=== PATIENT | male | born 1980 | race Caucasian/White ===

== ENCOUNTER 2017-02-23 20:52 | Inpatient (IN) | payer BC ==
[~2017-02-23] VITALS: Ht 177.8 cm; Wt 88.0 kg
--- NOTE | 2017-02-23 21:11 | NUR ---
PT TO ER VIA [facility] W/ C/O ABD PAIN GENERALIZED X 1 WEEK PT WENT TO [facility] ON MONDAY NO DX PT SAW PMD PT IN PAIN AGAIN PT TO [facility] ON MONITOR MD AWARE AWAIT ORDERS AND DISPO
[2017-02-23 22:24] LABS: BASOPHIL % 0.2 % (0-2); PLATELET COUNT 236 x10^3mcL (130-400); RED CELL DISTRIBUTION WIDTH 12.8 % (11.5-14.5)
--- NOTE | 2017-02-23 22:28 | NUR ---
ORDERS PER MD VSS CONT TO MONITOR
--- NOTE | 2017-02-23 22:43 | NUR ---
PT MEDICATED PER MD ORDER IVF RUNNING W/O COMPLICATIONS
[2017-02-23 22:44] LABS: CARBON DIOXIDE 23.9 mmol/L (21-32); CHLORIDE SERUM 104 mmol/L (98-107); CREATININE SERUM 0.8 mg/dL (0.7-1.3); GFR1 > 60 mL/min; GLUCOSE SERUM 105 mg/dL (74-106); POTASSIUM SERUM 3.5 mmol/L (3.5-5.1); SODIUM SERUM 140 mmol/L (136-145)
[2017-02-23 22:50] LABS: ALBUMIN 4.3 g/dL (3.4-5.0); ALKALINE PHOSPHATASE 54 U/L (46-116); ALT/SGPT 23 U/L (16-63); AST/SGOT 18 U/L (15-37); BILIRUBIN TOTAL 1.1 mg/dL (0.20-1.00); CHOLESTEROL 185 mg/dL (<200); LIPASE 151 IU/L (73-393); TOTAL PROTEIN, SERUM 7.7 g/dL (6.4-8.2); TRIGLYCERIDES 154 mg/dL (<150)
[2017-02-23 22:51] LABS: CHOLESTEROL/HDL RATIO 5.8; HDL CHOLESTEROL 32 mg/dL (40-60)
[2017-02-23 22:52] LABS: T3 TOTAL 1.41 ng/mL
[2017-02-23 22:53] LABS: FREE T4 1.39 ng/dL (0.76-1.46); FREE THYROXINE INDEX 2.8 ug/dL (1.4-4.5)
[2017-02-23 23:51] LABS: microscopic required? NO
--- NOTE | 2017-02-23 23:51 | NUR ---
PT SLEEPING AWAIT ORDERS AND DISPO VSS
[2017-02-24 00:07] LABS: UA SPECIFIC GRAVITY <=1.005 (1.005-1.035); urine erythrocyte NEGATIVE (NEGATIVE)
--- NOTE | 2017-02-24 00:36 | NUR ---
AGENCY DOCUMENTATION DONE BY Staff Name/Title - :KEVAN SWEET ANT [employer] User ID - : Agency Name - :[facility] Time Documented - From - : To - :
--- NOTE | 2017-02-24 00:49 | NUR ---
PT FOR ADMISSION ADMISSION ORDERS COMPLETE AWAIT PLACEMENT
--- NOTE | 2017-02-24 03:15 | NUR ---
REPORT GIVEN TO FLOOR JIM GUILLEN ALL QUESTIONS ASKED AND ANSWERED PT TX TO FLOOR IN STABLE CONDITION W/ ALL PERSONAL BELONGINGS
[2017-02-24 03:25] VITALS: BP 150/85
[2017-02-24 03:34] VITALS: BP 150/85
[2017-02-24 04:02] LABS: MAGNESIUM 2.2 mg/dL (1.8-2.4); PHOSPHOROUS 2.7 mg/dL (2.5-4.9)
--- NOTE | 2017-02-24 04:04 | NUR ---
Admitted this 36y/o male from ED via [facility]. Alert and oriented. Ambulatory. No resp.distress noted on room air. c/o diffuse abd'l. pain, level 6/10. Dilaudid 2mg po given as ordered. Denies n/v. Admission assessment done. will cont.to monitor. Call light within reach. tele#[id number] normal sinus rhythm.
[2017-02-24 04:34] LABS: AMPHETAMINE QUAL UR NONE DETECTED (NEG <=1000)
--- NOTE | 2017-02-24 07:44 | NUR ---
PT RECEIVED DURING CHANGE OF SHIFT, A/OX4, RIGHT EAR [place], TELE 46, NSR, DENIES CHEST PAIN, PULSES PRESENT, NO EDEMA NOTED, LUNGS CTA ON RA, DENIES SOB, BREATHING EVEN AND UNLABORED, BOWEL SOUNDS ACTIVE, DENIES N/V, ABLE TO VOID, AMBULATORY, SKIN WARM/DRY/INTACT, C/O ABD PAIN 2/10, STATES PAIN TOLERABLE, IV TO RAC INFUSING NS AT 100ML/HR, CALM AND COOPERATIVE, CALL LIGHT WITHIN REACH, WILL CONTINUE TO MONITOR.
--- NOTE | 2017-02-24 08:01 | NUR ---
DR. ALTMAN AND RESIDENTS MAKING ROUNDS, PLAN OF CARE DISCUSSED.
--- NOTE | 2017-02-24 08:40 | NUR ---
PT DENIES SOB, STATES PAIN IS TOLERABLE, REFUSING PAIN MEDICATION AT THIS TIME, REFUSED COLACE, CALL LIGHT WITHIN REACH, WILL CONTINUE TO MONITOR.
[2017-02-24 09:22] VITALS: BP 123/81
--- NOTE | 2017-02-24 09:22 | NUR ---
PT DENIES SOB, STATES PAIN TOLERABLE, CONSENT FOR REQUEST OF INFORMATION OBTAINED, CALL LIGHT WITHIN REACH, WILL CONTINUE TO MONITOR.
--- NOTE | 2017-02-24 10:16 | NUR ---
PT DENIES SOB, STATES PAIN TOLERABLE, D5NS STARTED, PT AWARE THAT HAT IS PLACED ON TOILET TO COLLECT SPECIMENT, CALL LIGHT WITHIN REACH, WILL CONTINUE TO MONITOR.
--- NOTE | 2017-02-24 11:10 | NUR ---
PT ASLEEP, NO INDICATION OF PAIN, BREATHING EVEN AND UNLABORED, CALL LIGHT WITHIN REACH, WILL CONTINUE TO MONITOR.
--- NOTE | 2017-02-24 12:05 | NUR ---
PT DENIES SOB, STATES PAIN TOLERABLE, C/O NAUSEA, MEDICATED PER EMAR, CALL LIGHT WITHIN REACH, WILL CONTINUE TO MONITOR.
--- NOTE | 2017-02-24 13:16 | NUR ---
PT C/O LIGHT HEADED, DIZZINESS, AND NAUSEA. DR. MARTINEZ NOTIFIED OF HR 53 REPORTED BY TELE MONITOR STATION, BP STABLE, BS 101, WILL AWAIT FURTHER ORDERS.
[2017-02-24 13:39] VITALS: BP 129/80
--- NOTE | 2017-02-24 13:47 | NUR ---
REGLAN 5MG GIVEN PER 'S ORDERS, WILL CONTINUE TO MONITOR.
--- NOTE | 2017-02-24 14:04 | NUR ---
PT DENIES SOB, DENIES PAIN, DENIES N/V, STATES "I FEEL MUCH BETTER.", CALL LIGHT WITHIN REACH, WILL CONTINUE TO MONITOR.
--- NOTE | 2017-02-24 15:10 | NUR ---
PT ASLEEP, NO INDICATION OF PAIN, BREATHING EVEN AND UNLABORED, CALL LIGHT WITHIN REACH, WILL CONTINUE TO MONITOR.
--- NOTE | 2017-02-24 16:12 | NUR ---
PT DENIES SOB, DENIES PAIN, DENIES N/V, TEARFUL DURING PERSONAL CALL WITH SPOUSE, CALL LIGHT WITHIN REACH, WILL CONTINUE TO MONITOR.
[2017-02-24 17:01] VITALS: BP 114/74
--- NOTE | 2017-02-24 17:18 | NUR ---
PT DENIES SOB, STATES ABD PAIN 2/10 TOLERABLE, REFUSING MEDICATION AT THIS TIME, CALL LIGHT WITHIN REACH, WILL CONTINUE TO MONITOR.
--- NOTE | 2017-02-24 18:16 | NUR ---
PT DENIES SOB, STATES ABD PAIN TOLERABLE, REFUSING PAIN MEDICATION AT THIS TIME, CALL LIGHT WITHIN REACH, WILL ENDORSE TO NEXT SHIFT.
--- NOTE | 2017-02-24 18:30 | NUR ---
PER DR. DE SANTIAGO SUPREP AND SENFRANSISCA TO BE GIVEN NOW WITH CEPHULAC, ORDERS CHANGED PER DR. DE SANTIAGO'S ORDERS.
--- NOTE | 2017-02-24 19:20 | NUR ---
AAOX4. NO RESP DISTRESS ON ROOM AIR, STS ABDOMINAL PAIN IS TOLERABLE. BOWEL PREP STARTED AND WILL CONTINUE PER DOCTOR'S ORDER FOR EGD AND COLONOSCOPE TOMORROW, BRP, KEPT NPO, IVF D5NS AT 80ML/HR INFUSING WELL TO RAC IV SITE, SCD TO BLE INPLACED, PLAN OF CARE DISCUSSED, CALL LIGHT PLACED WITHIN EASY REACH, SIDERAILS UP X2.
--- NOTE | 2017-02-24 20:20 | NUR ---
SEEN WALKING BACK FROM BATHROOM STS FEELING DIZZY, ASSISTED BACK TO BED, PATIENT VOMITED WITH DARK GREENISH EMESIS NOTED, STS ABDOMINAL PAIN IS 5/10 ON PAIN SCALE, WILL BE MEDICATED PER DOCTOR'S ORDER, BSC PROVIDED.
--- NOTE | 2017-02-24 20:34 | NUR ---
TORADOL IV FOR PAIN AND ZOFRAN IV FOR NAUSEA GIVEN PER DOCTOR'S ORDER. PATIENT STS " I DON'T KNOW IF I'M GONNA BE ABLE TO HANDLE THIS BOWEL PREP THINGS, I CAN BE RUDE IF IT GO BELOW MY CERTAIN POINT" REINFORED PATIENT TO CALL FOR HELP NEEDED. WILL CONTINUE TO MONITOR.
[2017-02-24 20:38] VITALS: BP 128/90
--- NOTE | 2017-02-24 21:30 | NUR ---
PATIENT CALLED STS IV PEEPING, SEEN PATIENT LAYING IN BED STS FEELING DISORIENTED AFTER PAIN MEDICINE AND ZOFRAN GIVEN, STS HE CAN'S HANDLE THE BOWLE PREP ANYMORE AND CRYING, NOTED PATIENT FINISHED HALF OF 2ND PART OF BOWEL PREP MEDICINE ALREADY. PATIENT HAD WATERY STOOL WITH LIGHT GREENISH COLORED NOTED ON BSC, EMPTIED BSC. PATIENT STS HE WANTS TO SLEEP BUT WORRY THAT HE MIGHT HAVE ACCIDENT FROM LAXATIVE GIVEN. EXPLAINED TO PATIENT THAT IT IS OK FOR HIM TO GET SOME SLEEP AND CAN FINISH HIS BOWEL PREP MEDS LATER, PATIENT THEN STARTS TO CRY. LEAD BURNER SUPERVISOR MADE AWARE.
--- NOTE | 2017-02-24 22:30 | NUR ---
DOCTOR CORINNA WENT IN TO ASSESS PATIENT, HEARD PATIENT YELLING WITH MANY "F" WORDS. FOOD AND BEVERAGE CONTROLLER AND SECURITY WENT IN TO TALK TO PATIENT BUT PATIENT WANT TO SPEAK TO BUSINESS CONTINUITY CONSULTANT.
--- NOTE | 2017-02-24 22:54 | NUR ---
SOCIAL WORK ADMINISTRATOR AT BEDSIDE AT THIS TIME.
--- NOTE | 2017-02-24 23:30 | NUR ---
DOCTOR PINEDA WENT IN TO TALK TO PATIENT. PER DOCTOR PINEDA, PATIENT IS AGREED WITH PLAN OF CARE.
--- NOTE | 2017-02-25 00:01 | NUR ---
AMBIEN 5MG AND ATIVAN 1MG IVP GIVEN PER DOCTOR EDWIN'S ORDER. WILL CONTINUE TO MONITOR.
--- NOTE | 2017-02-25 02:00 | NUR ---
RESTING WITH EYES CLOSE. KEPT NPO.
[2017-02-25 05:51] VITALS: BP 138/83
--- NOTE | 2017-02-25 06:00 | NUR ---
HAD WATERY BM X6 THROUGHOUT SHIFT WITH LIGHT BROWN STOOL COLORED. VSS. KEPT NPO. IVF NS INFUSING WELL.
[2017-02-25 06:05] LABS: BASOPHIL % 0.3 % (0-2); PLATELET COUNT 226 x10^3mcL (130-400); RED CELL DISTRIBUTION WIDTH 12.9 % (11.5-14.5)
[2017-02-25 06:24] LABS: CALCIUM 8.6 mg/dL (8.5-10.1); CARBON DIOXIDE 26.8 mmol/L (21-32); CHLORIDE SERUM 110 mmol/L (98-107); CREATININE SERUM 0.8 mg/dL (0.7-1.3); GFR1 > 60 mL/min; GLUCOSE SERUM 95 mg/dL (74-106); POTASSIUM SERUM 3.7 mmol/L (3.5-5.1); SODIUM SERUM 146 mmol/L (136-145)
--- NOTE | 2017-02-25 07:36 | NUR ---
REPORT GIVEN TO [place] IN GI LAB.
--- NOTE | 2017-02-25 07:48 | NUR ---
PT RECEIVED DURING CHANGE OF SHIFT, A/OX4, [place] RT EAR, TELE 46, NSR, PULSES PRESENT, NO EDEMA, LUNGS CTA ON RA, DENIES SOB, BREATHING EVEN AND UNLABORED, BOWEL SOUNDS ACTIVE, LBM THIS MORNING, PREVIOUS SHIFT REPORTS CLEAR BM, PT REFUSED LAST DOSE OF SENOKOT AND CEPHULAC, ABLE TO VOID, AMBULATORY, SKIN WARM/DRY/INTACT, C/O ABD PAIN 2/10 (CRAMPING), C/O NAUSEA, REFUSED MEDICATION AT THIS TIME, IV TO RAC INFUSING NS AT 80ML/HR, CALL LIGHT WITHIN REACH, CURRENTLY CALM AND COOPERATIVE, WILL CONTINUE TO MONITOR.
--- NOTE | 2017-02-25 08:27 | NUR ---
PT DENIES SOB, STATES PAIN TOLERABLE, REFUSED COLACE, CALL LIGHT WITHIN REACH, WILL CONTINUE TO MONITOR.
[2017-02-25 08:42] VITALS: BP 136/83
--- NOTE | 2017-02-25 08:59 | NUR ---
PT BEING ESCORTED DOWN TO GI LAB, WILL AWAIT PT'S RETURN.
--- NOTE | 2017-02-25 10:13 | NUR ---
REPORT RECEIVED FROM [place] IN GI LAB, WILL AWAIT PT'S RETURN.
--- NOTE | 2017-02-25 10:27 | NUR ---
PT ARRIVED FROM GI LAB, DROWSY BUT AROUSABLE, RESPONDS TO VERBAL COMMAND, VSS, STATES HE IS "PASSING GAS", CALL LIGHT WITHIN REACH, WILL CONTINUE TO MONITOR.
[2017-02-25 10:40] VITALS: BP 107/67
--- NOTE | 2017-02-25 11:20 | NUR ---
PT A/OX4, DENIES SOB, DENIES PAIN, STATES "I'M READY TO ANSWER QUESTIONS NOW, I FEEL A BIT BETTER", CALL LIGHT WITHIN REACH, WILL CONTINUE TO MONITOR.
--- NOTE | 2017-02-25 12:25 | NUR ---
PT DENIES SOB, DENIES PAIN, CALL LIGHT WITHIN REACH, WILL CONTINUE TO MONITOR.
[2017-02-25 12:57] VITALS: BP 121/85
--- NOTE | 2017-02-25 13:02 | NUR ---
DR. MARTINEZ AT BEDSIDE DISCUSSING RESULTS OF EGD/COLONOSCOPY, SUPPLEMENTATION WITH PSYLLIUM HUSK, AND DIET RECOMMENDATIONS RELEVANT TO RESULTS.
--- NOTE | 2017-02-25 14:00 | NUR ---
PT ASLEEP, NO INDICATION OF PAIN, BREATHING EVEN AND UNLABORED, CALL LIGHT WITHIN REACH, WILL CONTINUE TO MONITOR.
--- NOTE | 2017-02-25 15:02 | NUR ---
PT DENIES SOB, DENIES PAIN, DENIES N/V, STATES "I HONESTLY FEEL GREAT, JUST A LITTLE TIRED BUT I'D BE ABLE TO SLEEP AT HOME. DO YOU THINK I'LL BE GOING HOME? I'M JUST BORED HERE AND I WAS ALREADY DIAGNOSED SO I DON'T SEE THE POINT IN STAYING.", WILL NOTIFY DR. MARTINEZ, CALL LIGHT WITHIN REACH, WILL CONTINUE TO MONITOR.
--- NOTE | 2017-02-25 16:33 | NUR ---
PT AMBULATING HALLWAY, DENIES SOB, DENIES PAIN, DENIES N/V, WILL CONTINUE TO MONITOR.
[2017-02-25 17:00] VITALS: BP 140/90
--- NOTE | 2017-02-25 17:17 | NUR ---
PT DENIES SOB, DENIES PAIN, CALL LIGHT WITHIN REACH, WILL CONTINUE TO MONITOR.
--- NOTE | 2017-02-25 18:21 | NUR ---
PT STATING "I DONT' WANT TO GO HOME TO A CAT, I WANT TO LEAVE TODAY AND I FEEL LIKE I'M BEING BACKED INTO A CORNER AND I WON'T HAVE ANY OTHER CHOICE BUT TO SIGN OUT TONIGHT!", PT ALSO STATED "I HAVE A HISTORY OF BIPOLARISM, BUT I'M NOT LIKE MOST STUPID PEOPLE WITH BIPOLARISM", WILL ENDORSE PT TO NEXT SHIFT, WILL MAKE APPROPRIATE STAFF AWARE.
--- NOTE | 2017-02-25 19:30 | NUR ---
RECEIVED A BEDSIDE REPORT FROM JIM DESAI, PATIENT IS SITTING UP IN BED STS HE WOULD LIKE TO LEAVE THE HOSPITAL, HE HAS NO REASON TO BE HERE, STS " MY UNCLE WALKED OUT FROM THE DOCTOR OFFICE AFTER COLONOSCOPY" STS " MY 2 CATS AT HOME GONNA IF I DON'T GO HOME AND I DON'T KNOW ANYBODY, I'M FROM [place]" DISCONNECTED IVF TO [facility] IV SITE. DOCTOR MIGUEL PAGED AND NOTITIED.
--- NOTE | 2017-02-25 20:00 | NUR ---
DOCTOR MIGUEL WENT IN TO ROOM AT 1935HRS, PATIENT IS AGITATED, FRUSTRATED STS THAT HE WANTS TO KNOW THE RESULT OF HIS TREATMENTS, WANT TO BE INCLUDED IN THE PLAN OF CARE, STS" I DON'T KNOW WHY I NEED TO BE HOOKED UP WITH IVF" AND SPITTED HIS SLIVA ON HIS LEFT HAND STS " SEE I'M HYDRATED" THEN HE MENTIONED ABOUT HIS CATS DYING FROM KIDNEY DISEASE, ABOUT HIS IS LEAVING TO LAX TONIGHT, ABOUT IS INSOMNIA, STS HE IS INSULTED TO BE TREATED BIPOLAR SINCE HIS PSYCHIATRIST SAID HE DOES NOT NEED A TREATMENT SINCE 15 YEARS AGO. ALL HIS QUESTIONS AND CONCERNED WERE ANSWERRED BY DOCTOR RIVERA INCLUDING THE RISKS AND CONSEQUENCES LEAVING THE HOSPITAL AT THIS TIME. PATIENT THEN AGREED TO STAY TONIGHT.
--- NOTE | 2017-02-25 20:31 | NUR ---
PATIENT STS " I JUST WANT TO GET A GOOD NIGHT SLEEP" PLAN OF CARE DISCUSSED. PATIENT AGREED WITH ATIVAN AND AMITRIPTYLINE FOR INSOMNIA. MEDS GIVEN PER DOCTOR'S ORDER. WILL CONTINUE TO MONITOR.
[2017-02-25 20:36] VITALS: BP 121/74
--- NOTE | 2017-02-26 01:30 | NUR ---
PATIENT CALLED FOR URINAL, URINAL PROVIDED, VOIDED YELLOW URINE COLORED NOTED. DENIES DISCOMFORT AT THIS TIME.
--- NOTE | 2017-02-26 05:50 | NUR ---
PATIENT CALLED AND STS HE IS VERY UPSET WITH ERP IMPLEMENTATION CONSULTANT, STS " I DID NOT REFUSED THE BLOOD DRAW I'M NOT FULLY AWAKE YET, I'M SO SICK OF THIS PLACE" EXPLAINED TO PATIENT THAT THIS IS A MORNING ROUTINE BLOOD WORK AND IF HE WANTS I CAN LET THE ERP IMPLEMENTATION CONSULTANT TO COME BACK LATER, PATIENT STS HE IS ALREADY AWAKE AND THEY CAN COME BACK RIGHT NOW.
[2017-02-26 05:53] VITALS: BP 132/80
--- NOTE | 2017-02-26 06:15 | NUR ---
INFORMED GUEST RELATIONS OFFICER THAT PATIENT IS READY FOR THE BLOOD DRAW.
[2017-02-26] MEDS ORDERED: ELA10 PO (06:22)
[2017-02-26] MEDS ORDERED: TYL325 PO (06:23)
[2017-02-26] MEDS ORDERED: AMITIZA24 MC1 PO (06:24)
[2017-02-26] MEDS ORDERED: METP PO (06:25)
[2017-02-26] MEDS ORDERED: PRI20 PO (06:26)
[2017-02-26] MEDS ORDERED: ONDANSETRON4 M3 PO (06:27)
[2017-02-26 07:11] LABS: PLATELET COUNT 208 x10^3mcL (130-400); RED CELL DISTRIBUTION WIDTH 12.7 % (11.5-14.5)
[2017-02-26 07:14] LABS: BASOPHIL % 0 % (0-2)
[2017-02-26 07:17] LABS: CALCIUM 8.9 mg/dL (8.5-10.1); CARBON DIOXIDE 24.4 mmol/L (21-32); CHLORIDE SERUM 107 mmol/L (98-107); CREATININE SERUM 0.8 mg/dL (0.7-1.3); GFR1 > 60 mL/min; GLUCOSE SERUM 91 mg/dL (74-106); POTASSIUM SERUM 3.6 mmol/L (3.5-5.1); SODIUM SERUM 142 mmol/L (136-145)
--- NOTE | 2017-02-26 07:25 | NUR ---
PT RECEIVED DURING CHANGE OF SHIFT, UPON ENTERING ROOM PT STATED TO PRIMARY RN "TURN AROUND AND WALK AWAY!", PRIMARY RN STATED "I'M SORRY, I DON'T BELIEVE I CAUGHT THAT, WOULD YOU MIND REPEATING IT?", PT STATED "ARE YOU DEAF!?! I SAID TURN AROUND AND WALK AWAY!", PT WAS POSTURING IN AN AGGRESSIVE MANNER, NO INDICATION OF PAIN, BREATHING EVEN AND UNLABORED, TELE 46, NSR, CALL LIGHT WITHIN REACH, WILL REPORT TO CHARGE NURSE.
--- NOTE | 2017-02-26 08:05 | NUR ---
DR. ZAMAN, PARTS PROFESSIONAL, AND PRIMARY RN AT BEDSIDE. DR. ZAMAN EXPLAINED THAT DISCHARGE WAS PLANNED FOR TODAY AND EDUCATED PT ON CONDITION, ARRIVED AND PT'S MOOD TURNED FROM BELLIGERENT TO TEARFUL, CALL LIGHT WITHIN REACH, AT BEDSIDE, WILL CONTINUE TO MONITOR.
[2017-02-26 09:41] VITALS: BP 135/88
[2017-02-26] MEDS ORDERED: LAC PO (10:45)
--- NOTE | 2017-02-26 11:05 | NUR ---
Nutrition Note: Education Provided pt and pt's with hiatal hernia and ulcer education. Went over what foods to eat and what foods to avoid (alcohol, fatty foods, acidic foods, chocolate and peppermint) in order to avoid symptoms. Pt requested RD card and stated he would e-mail RD if he had further questions. Pt and were receptive with education and verbalized understanding.
[2017-02-26 11:16] VITALS: BP 135/88
--- NOTE | 2017-02-26 11:55 | NUR ---
PT AND RECEIVED DISCHARGE INSTRUCTIONS, VERBALIZED UNDERSTANDING, ALL QUESTIONS ANSWERED, E-SCRIPTS EXPLAINED, IV DC'D CATHETER INTACT, ARMBAND DC'D, TELE DC'D AND RETURNED MONITOR STATION, BEING ESCORTED DOWNSTAIRS BY JULISA JOHNSTON.
== END 2017-02-26 11:46 | disposition home or self-care (01) | DRG 384 ==
LOC: ED 20:52 → DU 02-24 02:41
PROVIDERS: Internal Medicine Gastroenterology; Specialist; Student in an Organized Health Care Education/Training Program; ADMIT Family Medicine Sports Medicine
PROC: 0DB68ZX Excision of Stomach, Via Natural or Artificial Opening Endoscopic, Diagnostic (ICD-10-PCS; principal; 2017-02-25 09:00)
PROC: 0DJD8ZZ Inspection of Lower Intestinal Tract, Via Natural or Artificial Opening Endoscopic (ICD-10-PCS; 2017-02-25 09:00)
DX: K26.3 Acute duodenal ulcer without hemorrhage or perforation (principal); E78.5 Hyperlipidemia, unspecified; K44.9 Diaphragmatic hernia without obstruction or gangrene; K29.80 Duodenitis without bleeding; F31.9 Bipolar disorder, unspecified; E80.6 Other disorders of bilirubin metabolism; Z68.27 Body mass index [BMI] 27.0-27.9, adult; Z87.891 Personal history of nicotine dependence; Z80.3 Family history of malignant neoplasm of breast; Z82.49 Family history of ischemic heart disease and other diseases of the circulatory system; Z82.0 Family history of epilepsy and other diseases of the nervous system
CPT/HCPCS: 43235; 83880; 84439; 87046; 87046-59; J1200; J1610; J1885; J2060; J2250; J2310; J2405; J2765; J3010; J3490; J7030; J7042; Q0092